=== PATIENT | female | born 1935 | race Two or more races ===

== ENCOUNTER 2022-12-21 19:23 | Emergency (ER) | payer MEDICARE, OTHER ==
[~2022-12-21] VITALS: Ht 170.2 cm; Wt 78.9 kg
--- NOTE | 2022-12-21 19:45 | NUR ---
adam from [facility] c/o left shoulder pain. PT TOLERATING R/A WELL WITH NO RESP DISTRESS. CONNECTED PT TO POX AND MONITOR. SAFETY MEASURES IN PLACE.
[2022-12-21 20:30] LABS: BASOPHILS % (AUTO) 0.5 % (0.0-2.0); HEMATOCRIT 43 % (33-45); HEMOGLOBIN 14.2 g/dL (11.5-14.8); LYMPHOCYTES # (AUTO) 1.9 K/uL (0.8-4.8); MEAN CORPUSCULAR HGB CONC 33 g/dl (31.0-36.0); MEAN CORPUSCULAR VOLUME 86 fL (82-100); MONOCYTES # (AUTO) 0.6 K/uL (0.1-1.30); NEUTROPHILS # (AUTO) 5.1 K/uL (1.8-8.9); NEUTROPHILS % (AUTO) 64.5 % (43.0-81.0); PLATELET COUNT (AUTO) 104 K/uL (150-450); RED BLOOD CELL COUNT(AUTO) 5.01 MIL/uL (4.0-5.2)
--- NOTE | 2022-12-21 20:35 | NUR ---
CORPORATE DEVELOPMENT INTERN AT PT'S BEDSIDE
[2022-12-21 20:37] LABS: CALCIUM, SERUM 8.6 mg/dL (8.5-10.1); CARBON DIOXIDE 27 mmol/L (21-32); CHLORIDE 104 mmol/L (98-107); CREATININE 1.1 mg/dL (0.6-1.3); GLUCOSE 122 mg/dL (74-106); POTASSIUM 3.5 mmol/L (3.5-5.1); SODIUM SERUM 139 mmol/L (136-145); UREA NITROGEN, BLOOD 10 mg/dL (7-18)
[2022-12-21 20:51] LABS: ALANINE AMINOTRANSFERASE 13 U/L (12-78); ALBUMIN 2.9 g/dL (3.4-5.0); ALKALINE PHOSPHATASE 79 U/L (46-116); ASPARTATE AMINOTRANSFERASE 18 U/L (15-37); BILIRUBIN,DIRECT 0.1 mg/dL (0.0-0.2); BILIRUBIN,TOTAL 0.4 mg/dL (0.2-1.0); TOTAL PROTEIN, SERUM 6.2 g/dL (6.4-8.2)
[2022-12-21] MEDS ORDERED: NAPR-1164 PO (21:11)
--- NOTE | 2022-12-21 21:27 | NUR ---
reprot given to faciltiy
--- NOTE | 2022-12-21 21:27 | NUR ---
[facility] CALLED ETA 30-45 MINS
[2022-12-21 21:30] VITALS: BP 114/59
[2022-12-21] MEDS ORDERED: FUROSEMIDE 40 MG/4 ML VIAL IV ONE (21:30)
[2022-12-21] MEDS ORDERED: FUROSEMIDE 20 MG/2 ML VIAL ONE (21:33)
--- NOTE | 2022-12-21 22:23 | NUR ---
REPORT GIVEN TO [facility] TO DC PT TO [facility]. EMT AT PT'S BEDSIDE FOR DC
== END 2022-12-21 22:46 ==
LOC: ER 19:25
DX: M19.012 Primary osteoarthritis, left shoulder (principal); I11.0 Hypertensive heart disease with heart failure; I50.9 Heart failure, unspecified; Z79.1 Long term (current) use of non-steroidal anti-inflammatories (NSAID)
CPT/HCPCS: 99285; 96374; 71045; 93005; 73030; 85025; 80048; 80076; 36415; 84484 ×2; 83880; J1940

== ENCOUNTER 2023-09-03 22:16 | Emergency (ER) | payer MEDICARE, OTHER ==
[~2023-09-03] VITALS: Ht 167.6 cm; Wt 82.6 kg
[~2023-09-03 22:16] MED LIST: NAPR-1164 PO
[2023-09-03] MEDS ORDERED: ONDANSETRON HCL/PF - ER 4 MG/2 ML VIAL IV ONE (23:00)
[2023-09-03] MEDS ORDERED: MORPHINE SULFATE INJ 2 MG/ML DISP.SYRIN IV ONE (23:00)
[2023-09-03] MEDS ORDERED: IV NS 0.9% 1,000 ML BAG IV ONE (23:00)
[2023-09-03] MEDS ORDERED: KETOROLAC TROMETHAMINE INJ 30 MG/ML VIAL IV ONE (23:00)
[2023-09-03 23:13] LABS: BASOPHILS % (AUTO) 0.7 % (0.0-2.0); EOSINOPHILS % (AUTO) 0.9 % (0.0-6.0); HEMATOCRIT 39 % (33-45); HEMOGLOBIN 12.6 g/dL (11.5-14.8); LYMPHOCYTES # (AUTO) 1.1 K/uL (0.8-4.8); LYMPHOCYTES % (AUTO) 26.9 % (20.0-44.0); MEAN CORPUSCULAR HEMOGLOBIN 26 PG (26.0-33.0); MEAN CORPUSCULAR HGB CONC 32 g/dl (31.0-36.0); MEAN CORPUSCULAR VOLUME 82 fL (82-100); MONOCYTES # (AUTO) 0.6 K/uL (0.1-1.30); MONOCYTES % (AUTO) 13.4 % (2.0-12.0); NEUTROPHILS # (AUTO) 2.5 K/uL (1.8-8.9); NEUTROPHILS % (AUTO) 58.1 % (43.0-81.0); PLATELET COUNT (AUTO) 86 K/uL (150-450); RED BLOOD CELL COUNT(AUTO) 4.83 MIL/uL (4.0-5.2); RED CELL DISTRIBUTION WIDTH 15.7 % (11.5-15.0); WHITE BLOOD COUNT (AUTO) 4.2 K/uL (4.3-11.0)
[2023-09-03] MEDS ORDERED: ONDANSETRON HCL/PF 4 MG/2 ML VIAL ONE (23:14)
[2023-09-03] MEDS ORDERED: KETOROLAC TROMETHAMINE INJ 30 MG/ML VIAL ONE (23:14)
[2023-09-03] MEDS ORDERED: MORPHINE SULFATE INJ 4 MG/ML DISP.SYRIN ONE (23:14)
[2023-09-03 23:21] LABS: CALCIUM, SERUM 8.8 mg/dL (8.5-10.1); CARBON DIOXIDE 24 mmol/L (21-32); CHLORIDE 104 mmol/L (98-107); GLUCOSE 100 mg/dL (74-106); POTASSIUM 3.6 mmol/L (3.5-5.1); SODIUM SERUM 138 mmol/L (136-145); UREA NITROGEN, BLOOD 11 mg/dL (7-18)
[2023-09-03 23:26] LABS: INR 1.18 (0.91-1.10); PARTIAL THROMBOPLASTIN TIME 37.5 SEC (24.3-34.3); PROTHROMBIN TIME 12.4 SECS (9.2-11.1)
[2023-09-03 23:57] LABS: EOSINOPHILS % (MANUAL) 1 % (0-4); LYMPHOCYTES % (MANUAL) 18 % (16-48); MONOCYTES % (MANUAL) 8 % (0-11.0); NEUTROPHILS % (MANUAL) 73 (42-76)
[2023-09-03 23:58] LABS: PLATELET ESTIMATE DECREASED
[2023-09-04] MEDS ORDERED: HYDR-4209 PO (04:05)
[2023-09-04] MEDS ORDERED: KETO10TA2 PO (04:05)
[2023-09-04] MEDS ORDERED: MORPHINE SULFATE INJ 4 MG/ML DISP.SYRIN ONE (04:45)
[2023-09-04 04:52] VITALS: BP 179/90; TEMP 98.1; O2SAT 94
[2023-09-04] MEDS ORDERED: MORPHINE SULFATE INJ 2 MG/ML DISP.SYRIN IV ONE (05:00)
== END 2023-09-04 04:56 | disposition home or self-care (01) ==
LOC: ER 22:24
DX: S89.82XA Other specified injuries of left lower leg, initial encounter (principal); I10 Essential (primary) hypertension; Z79.899 Other long term (current) drug therapy; W18.39XA Other fall on same level, initial encounter; Y93.89 Activity, other specified; Y92.89 Other specified places as the place of occurrence of the external cause; Y99.8 Other external cause status
CPT/HCPCS: 29505; 36415; 73521; 73564; 80048; 85007; 85025; 85730; 96374; 96375; 99284; J1885; J2270; J2405